=== PATIENT | female | born 1965 | race African-American/Black ===

== ENCOUNTER 2016-11-14 14:58 | Emergency (ER) | payer MEDICAID ==
[~2016-11-14] VITALS: Ht 167.6 cm; Wt 107.0 kg
[2016-11-14 15:26] VITALS: BP 107/47
[2016-11-14] MEDS ORDERED: KETOROLAC 60MG/2ML VIAL IM ONE (18:00)
[2016-11-14 18:36] LABS: CLARITY URINE CLEAR (CLEAR); COLOR URINE YELLOW (YELLOW); GLUCOSE URINE NEGATIVE (NEGATIVE); KETONES URINE NEGATIVE (NEGATIVE); LEUKOCYTE ESTERASE URINE NEGATIVE (NEGATIVE); NITRITE URINE NEGATIVE (NEGATIVE); OCCULT BLOOD URINE NEGATIVE (NEGATIVE); PH URINE 6.5 (4.5-8.0); PROTEIN URINE NEGATIVE (NEGATIVE); SPECIFIC GRAVITY URINE 1.023 (1.005-1.030)
== END 2016-11-14 19:00 | disposition home or self-care (01) ==
LOC: ER 17:42
DX: M54.5 Low back pain (principal); G89.29 Other chronic pain; J45.909 Unspecified asthma, uncomplicated; F17.200 Nicotine dependence, unspecified, uncomplicated; Z88.0 Allergy status to penicillin; Z98.890 Other specified postprocedural states
CPT/HCPCS: 81003; 96372; 99283; J1885

== ENCOUNTER 2023-06-13 09:41 | Emergency (ER) | payer MEDICAID, OTHER ==
[~2023-06-13] VITALS: Ht 167.6 cm; Wt 91.0 kg
[2023-06-13 09:49] VITALS: BP 100/43; O2SAT 97
[2023-06-13] MEDS ORDERED: NAPR-681 MT (10:39)
[2023-06-13 11:07] VITALS: PULSE 62; RESP 12; TEMP 98
== END 2023-06-13 11:08 | disposition home or self-care (01) ==
LOC: ER 09:41
DX: G56.01 Carpal tunnel syndrome, right upper limb (principal)
CPT/HCPCS: 29125; 99283